=== PATIENT | male | born 1955 | race Caucasian/White ===

== ENCOUNTER 2022-02-14 20:02 | Emergency (ER) | payer MEDICARE, OTHER ==
[~2022-02-14] VITALS: Ht 162.6 cm; Wt 68.2 kg
[2022-02-14 20:12] VITALS: TEMP 97.5
[2022-02-14] MEDS ORDERED: CEPHALEXIN500 M1 PO (22:19)
[2022-02-14 22:36] VITALS: BP 190/110; PULSE 80
== END 2022-02-14 23:36 | disposition home or self-care (01) ==
LOC: COL.ER 20:02
DX: S01.01XA Laceration without foreign body of scalp, initial encounter (principal); S01.81XA Laceration without foreign body of other part of head, initial encounter; S01.21XA Laceration without foreign body of nose, initial encounter; R03.0 Elevated blood-pressure reading, without diagnosis of hypertension; W20.8XXA Other cause of strike by thrown, projected or falling object, initial encounter

== ENCOUNTER → 2022-02-22 | Outpatient (CLI) | payer MEDICARE, OTHER ==
[~2022-02-22] MED LIST: CEPHALEXIN500 M1 PO
[2022-02-22 13:54] VITALS: BP 209/116; PULSE 85; TEMP 97.7
== END ==
LOC: COL.ER 13:41
DX: Z48.02 Encounter for removal of sutures (principal)